=== PATIENT | female | born 1955 | race Caucasian/White ===

== ENCOUNTER 2017-02-05 15:35 | Emergency (ER) | payer MEDICAID, OTHER, SELFPAY ==
[~2017-02-05] VITALS: Ht 162.6 cm; Wt 68.8 kg
[2017-02-05] MEDS ORDERED: SODIUM CHLORIDE FLUSH 10ML SYR IVF ONE (16:00)
[2017-02-05] MEDS ORDERED: ONDANSETRON 2MG/ML, 2ML IVPush ONE (16:00)
[2017-02-05] MEDS ORDERED: FAMOTIDINE 20 MG/2 ML IVP ONE (16:00)
[2017-02-05] MEDS ORDERED: SODIUM CHLORIDE 0.9% 1,000ML IVBOLUS ONE (16:00)
[2017-02-05] MEDS ORDERED: ONDANSETRON 2MG/ML, 2ML ONE (16:27)
[2017-02-05] MEDS ORDERED: FAMOTIDINE 20 MG/2 ML ONE (16:27)
[2017-02-05] MEDS ORDERED: MORPHINE SULFATE 4 MG/ML, 1ML ONE (16:27)
[2017-02-05] MEDS ORDERED: MORPHINE SULFATE 4 MG/ML, 1ML IVPush PRN (16:30)
[2017-02-05 16:32] LABS: BLOOD UREA NITROGEN 9 mg/dL (7-18)
[2017-02-05 16:36] LABS: ASPARTATE AMINO TRANSFERASE 48 U/L (15-37)
[2017-02-05 16:52] LABS: ANISOCYTOSIS 1+; MICROCYTOSIS 1+; OVALOCYTES 1+
[2017-02-05 17:43] VITALS: BP 105/63
[2017-02-05] MEDS ORDERED: CEFDINIR 300 MG CAPSULE PO ONE (18:00)
== END 2017-02-05 18:45 ==
LOC: ED 18:27
DX: N30.90 Cystitis, unspecified without hematuria (principal); K80.20 Calculus of gallbladder without cholecystitis without obstruction; E78.5 Hyperlipidemia, unspecified; E11.9 Type 2 diabetes mellitus without complications; I10 Essential (primary) hypertension; K74.60 Unspecified cirrhosis of liver
CPT/HCPCS: 36415; 76700; 80053; 81001; 83690; 85025; 85610; 87077; 87086; 87186; 96361; 96374; 96375; J2405; J7030; S0028

== ENCOUNTER → 2017-02-17 | Outpatient (CLI) | payer MEDICAID | END | disposition home or self-care (01) | LOC: RAD 14:56 | PROVIDERS: ATTEND Internal Medicine Gastroenterology | DX: R16.0 Hepatomegaly, not elsewhere classified (principal); R63.4 Abnormal weight loss; I81 Portal vein thrombosis; F41.9 Anxiety disorder, unspecified; R68.81 Early satiety; E11.9 Type 2 diabetes mellitus without complications | CPT/HCPCS: 74000 ==

== ENCOUNTER → 2017-03-04 | Outpatient (CLI) | payer MEDICAID ==
[~2017-03-04] MED LIST: GADOBUTROL 10 MMOL/10 ML VIAL ONE
== END | disposition home or self-care (01) ==
LOC: CFH 13:35
PROVIDERS: ATTEND Internal Medicine Gastroenterology
DX: K80.20 Calculus of gallbladder without cholecystitis without obstruction (principal); J90 Pleural effusion, not elsewhere classified; K76.6 Portal hypertension; N28.1 Cyst of kidney, acquired; R68.81 Early satiety; E11.9 Type 2 diabetes mellitus without complications; F41.9 Anxiety disorder, unspecified; R63.4 Abnormal weight loss; R16.2 Hepatomegaly with splenomegaly, not elsewhere classified; I81 Portal vein thrombosis
CPT/HCPCS: 74183; A9585

== ENCOUNTER → 2017-03-26 | Outpatient (CLI) | payer MEDICAID | END | disposition home or self-care (01) | LOC: CFH 12:52 | PROVIDERS: ATTEND Physician Assistant Medical | DX: K76.89 Other specified diseases of liver (principal); R16.1 Splenomegaly, not elsewhere classified; J90 Pleural effusion, not elsewhere classified; K80.20 Calculus of gallbladder without cholecystitis without obstruction; N28.1 Cyst of kidney, acquired; R18.8 Other ascites | CPT/HCPCS: 82565; A9585; C8902 ==